=== PATIENT | female | born 1995 | race Caucasian/White ===

== ENCOUNTER 2018-04-29 01:40 | Emergency (ER) | payer MEDICAID ==
[~2018-04-29] VITALS: Ht 152.4 cm; Wt 47.0 kg
[2018-04-29] MEDS ORDERED: LIDOCAINE HCL 1% 20ML VIAL (Pyxis) INJ INFIL ONE (07:30)
[2018-04-29] MEDS ORDERED: HYDROCODONE/ACETAMINOPHEN 5/325MG TABLET PO ONE (07:30)
[2018-04-29] MEDS ORDERED: TETANUS AND DIPHTHERIA TOX/PF 0.5ML SYR (ADULT) IM ONE (07:30)
[2018-04-29] MEDS ORDERED: TETANUS, DIPHTHERIA, PERTUSSIS VAC/PF 0.5ML (>7YR OLD) IM ONE (08:15)
[2018-04-29] MEDS ORDERED: IBUPROFEN 600MG TABLET PO ONE (09:30)
[2018-04-29 09:40] VITALS: BP 112/76
== END 2018-04-29 09:55 | disposition home or self-care (01) ==
LOC: ER 01:40
DX: S01.511A Laceration without foreign body of lip, initial encounter (principal); J45.909 Unspecified asthma, uncomplicated; F12.10 Cannabis abuse, uncomplicated; V47.0XXA Car driver injured in collision with fixed or stationary object in nontraffic accident, initial encounter; Y93.89 Activity, other specified; Y92.488 Other paved roadways as the place of occurrence of the external cause
CPT/HCPCS: 12011; 99283; J3490; 90714

== ENCOUNTER 2018-05-04 17:58 | Emergency (ER) | payer SELFPAY ==
[~2018-05-04] VITALS: Ht 154.9 cm; Wt 47.0 kg
[2018-05-04 19:48] VITALS: BP 98/58
== END 2018-05-04 22:28 | disposition home or self-care (01) ==
LOC: ER 17:58
DX: S01.511D Laceration without foreign body of lip, subsequent encounter (principal); X58.XXXD Exposure to other specified factors, subsequent encounter; Z53.21 Procedure and treatment not carried out due to patient leaving prior to being seen by health care provider

== ENCOUNTER 2018-05-07 20:27 | Emergency (ER) | payer MEDICAID ==
[~2018-05-07] VITALS: Ht 154.9 cm; Wt 47.0 kg
[2018-05-07] MEDS ORDERED: BACITRACIN ZINC OINT UDPKT TOP ONE (21:30)
[2018-05-07 21:52] VITALS: BP 112/68
== END 2018-05-07 21:52 | disposition home or self-care (01) ==
LOC: ER 20:27
DX: S01.511D Laceration without foreign body of lip, subsequent encounter (principal); J45.909 Unspecified asthma, uncomplicated; F12.10 Cannabis abuse, uncomplicated; X58.XXXD Exposure to other specified factors, subsequent encounter
CPT/HCPCS: 99283

== ENCOUNTER 2019-12-14 17:19 | Emergency (ER) | payer MEDICAID, OTHER ==
[~2019-12-14] VITALS: Ht 154.9 cm; Wt 47.0 kg
[2019-12-14 18:48] LABS: BASOPHILS % 0.5 % (0.0-2.0); EOSINOPHILS % 2.5 % (0.0-5.0); HEMATOCRIT. 39.1 % (36.0-48.0); HEMOGLOBIN. 13.1 g/dL (12.0-16.0); LYMPHOCYTES % 16.6 % (20.0-50.0); MEAN CORPUSCULAR VOLUME 89.5 fL (81.0-99.0); MEAN PLATELET VOLUME 7.9 fl (7.4-10.4); MONOCYTES % 6.2 % (2.0-8.0); NEUTROPHILS % 74.2 % (40.0-76.0); PLATELET 258 x1000/uL (130-400); RED BLOOD CELL COUNT 4.37 mill/uL (4.2-5.4); RED CELL DISTRIBUTION WIDTH 12.6 % (11.6-14.6)
[2019-12-14 18:54] LABS: CHLORIDE 110 mEq/L (98-107)
[2019-12-14 18:58] LABS: ETHANOL BLOOD < 10 mg/dL
[2019-12-14 19:30] VITALS: BP 121/72
[2019-12-14 19:34] LABS: CLARITY URINE CLEAR (CLEAR); COLOR URINE YELLOW (YELLOW); KETONES URINE NEGATIVE (NEGATIVE); LEUKOCYTE ESTERASE URINE NEGATIVE (NEGATIVE); NITRITE URINE NEGATIVE (NEGATIVE); OCCULT BLOOD URINE 2+ (NEGATIVE); PROTEIN URINE NEGATIVE (NEGATIVE); SPECIFIC GRAVITY URINE 1.008 (1.005-1.030)
[2019-12-14 20:01] LABS: *AMPHETAMINES SCREEN URINE NEGATIVE (NEGATIVE); *BARBITURATES SCREEN URINE NEGATIVE (NEGATIVE); *BENZODIAZEPINES SCREEN URINE NEGATIVE (NEGATIVE); *COCAINE SCREEN URINE NEGATIVE (NEGATIVE); METHADONE URINE SCREEN NEGATIVE (NEGATIVE)
[2019-12-14 20:02] LABS: PHENCYCLIDINE URINE SCREEN NEGATIVE (NEGATIVE)
[2019-12-14 20:05] LABS: CANNABINOID URINE SCREEN PRESUMTIVE POSITIVE (NEGATIVE); OPIATES URINE SCREEN PRESUMTIVE POSITIVE (NEGATIVE)
== END 2019-12-14 21:32 | disposition home or self-care (01) ==
LOC: ER 17:19
DX: S61.512A Laceration without foreign body of left wrist, initial encounter (principal); J45.909 Unspecified asthma, uncomplicated; X78.8XXA Intentional self-harm by other sharp object, initial encounter; Y93.89 Activity, other specified; Y92.018 Other place in single-family (private) house as the place of occurrence of the external cause
CPT/HCPCS: 36415; 80053; 80305; 80307; 80320; 80329; 81003; 81025; 85025; 99283; G0480